=== PATIENT | female | born 1955 | race Caucasian/White ===

== ENCOUNTER 2022-09-01 10:45 | Inpatient (IN) | payer MEDICARE, SELFPAY ==
[2022-09-01] VITALS (27 sets, daily range): BP systolic 87–116; BP diastolic 50–64; PULSE 87–106; RESP 14–19; TEMP 36.9–37.8; O2SAT 93–99; BMI 21.2; BMI 21.3
--- NOTE | 2022-09-01 11:12 | DI.RAD.S_ITS ---
PROCEDURE: XR ACUTE ABDOMEN SERIES INDICATIONS: N/V TECHNIQUE: One view chest and two views of the abdomen were acquired. COMPARISON: None. FINDINGS: Surgical changes and devices: None. Chest: Lungs are clear. Heart size is at upper limits of normal. Pulmonary interstitial prominence. No pleural effusions. No pneumoperitoneum. Abdomen: Bowel gas pattern is nonspecific. 2 rounded densities in the left upper quadrant are probably within the stomach. No suspicious calcifications. Visualized solid organ contours appear normal. Bones: No suspicious bony lesions. IMPRESSION: 1. Nonspecific bowel gas pattern. If clinical symptoms persist or clinical suspicion for pathology is high, CT is suggested for further evaluation. Dictated by: Ragini Batres M.D. on 09/01/2022 at 12:02 Approved by: Ragini Batres M.D. on 09/01/2022 at 12:05
--- NOTE | 2022-09-01 11:13 | ED_ITS ---
HPI - General Adult General Chief complaint: Nausea/Vomiting/Diarrhea Stated complaint: Light headed, vomiting Time Seen by Provider: 09/01/22 11:05 History of Present Illness HPI narrative: 66-year-old female nonsmoker without chronic medical problems, takes no prescriptions presents with family in the chief complaint of a few days nausea, vomiting and diarrhea and now dizziness, weakness and lightheadedness. She is had poor appetite and also very little to eat or drink over the past few days. She denies recent travel, bad food, exposure to ill persons or antibiotic use. She denies history of the same. She denies runny nose, sore throat or cough. She has no chest pain or shortness of breath. She denies any abdominal pain at any point but does state that about a week ago she had some left upper back pain that completely resolved with [id number] therapies and ice. Related Data Home Medications Medication Instructions Recorded Confirmed No Known Home Medications 09/01/22 09/01/22 Allergies Allergy/AdvReac Type Severity Reaction Status Date / Time Some antibiotic Allergy Intermediate Hives Uncoded 09/01/22 12:48 Review of Systems Review of Systems Narrative: GENERAL: See HPI HEENT: Denies sinus pain, ear pain, sore throat, difficulty swallowing, dizziness. RESPIRATORY: Denies dyspnea, cough, wheezing, hemoptysis, sputum. CARDIOVASCULAR: Denies chest pain, palpitations, orthopnea, edema, GASTROINTESTINAL: See HPI : See HPI MUSCULOSKELETAL: denies weakness, joint pain, or bony pain SKIN: Denies rash, skin lesions, or other NEUROLOGIC: Denies weakness, headache, numbness, change in speech, confusion, seizures, incoordination. PSYCHIATRIC: No concerning psychosocial issues. 12 point review of systems is negative except for those stated above Patient History Social History Smoking Status: Former smoker Exam Narrative Exam Narrative: GENERAL: [66] year old patient appears stated age. Well-developed patient, in mild distress. Thin, weak appearing HEAD: Atraumatic. Normocephalic. EYES: Pupils equal round and reactive. Extraocular motions intact. No scleral icterus. No injection or drainage. ENT: Dry mucous membranes Nose without bleeding, purulent drainage. Throat without erythema, tonsillar hypertrophy or exudate. Airway patent. NECK: Trachea midline. Non tender CARDIOVASCULAR: Regular rate and rhythm without murmurs, gallops, or rubs. RESPIRATORY: Clear to auscultation. Breath sounds equal bilaterally. No wheezes, rales, or rhonchi. GASTROINTESTINAL: Abdomen soft, non-tender, nondistended. Increased bowel sounds in all 4 quadrants : prolapse easily reduced by nursing when romero placed due to urinary retention. Painless. Performed with nursing manager technical sales at bedside and patient permission EXTREMITIES: No edema or joint tenderness. BACK: Nontender without deformity or crepitance. No flank tenderness. NEURO: AOx3. SKIN: No rash or erythema of visible areas Initial Vital Signs Initial Vital Signs: Vital Signs Temperature 98.4 F 09/01/22 11:05 Pulse Rate 102 H 09/01/22 11:05 Respiratory Rate 14 09/01/22 11:05 Blood Pressure 91/52 L 09/01/22 11:05 Pulse Oximetry 99 09/01/22 11:05 Oxygen Delivery Method 09/01/22 11:05 Course Orders Ordered: ED Orders 09/01/22 11:12 XR acute abdomen series Stat 09/01/22 11:16 EKG-12 Lead Stat 09/01/22 11:40 Blood Culture Stat Complete Blood Count AUTO DIFF Stat Comprehensive Metabolic Panel Stat Covid-19 + FLU A/B + RSV - PCR Stat Lactate (Lactic Acid) Stat Lipase Stat Magnesium Stat Procalcitonin Stat TSH w/ Reflex to FT4 Urgent 09/01/22 11:47 A1C [Hemoglobin A1C% w Est Avg Glu] Stat 09/01/22 12:41 CT chest abd pel w con Stat 09/01/22 13:30 GI Panel (Film Array) Stat 09/01/22 13:55 BMP [Basic Metabolic Panel] Stat 09/01/22 15:30 Urine Culture Stat Urine Microscopic Stat 09/01/22 16:32 Education, smoking cessation ONGOING 09/01/22 16:36 Lactate (Lactic Acid) Q2H 09/01/22 18:36 Lactate (Lactic Acid) Q2H 09/01/22 20:36 Lactate (Lactic Acid) Q2H 09/01/22 22:36 Lactate (Lactic Acid) Q2H 09/02/22 05:00 CBC Auto Diff [Complete Blood Count AUTO DIFF] DAILY CMP [Comprehensive Metabolic Panel] DAILY Magnesium DAILY Procalcitonin Urgent 09/03/22 05:00 CBC Auto Diff [Complete Blood Count AUTO DIFF] DAILY CMP [Comprehensive Metabolic Panel] DAILY Magnesium DAILY 09/04/22 05:00 CBC Auto Diff [Complete Blood Count AUTO DIFF] DAILY CMP [Comprehensive Metabolic Panel] DAILY Magnesium DAILY Acetaminophen (Acetaminophen 325 Mg Tablet) 650 mg PO Q6H PRN PRN Reason: Fever/Mild Pain (1-3) Dextrose (Dextrose 50 % In Water 25 Gm/50 Ml Syringe) 25 gm IV PRN PRN PRN Reason: Hypoglycemia Enoxaparin Sodium (Enoxaparin 40 Mg/0.4 Ml Syringe) 40 mg SUBCUT DAILY EFE Magnesium Sulfate (Magnesium Sulfate) 2 gm in 50 mls @ 25 mls/hr IV NOW ONE Stop: 09/01/22 18:28 Piperacillin Sod/Tazobactam (Sod 3.375 gm/ Sodium Chloride) 100 mls @ 25 mls/hr IV Q8H EFE Sodium Chloride (Normal Saline 0.9%) 1,000 mls @ 100 mls/hr IV CONT EFE Stop: 09/02/22 04:29 Insulin Human Lispro (Insulin Lispro 100 Unit/Ml 3ml Vial) 0 unit SUBCUT ACHS EFE; Protocol Melatonin (Melatonin 3 Mg Tablet) 6 mg PO BEDTIME PRN PRN Reason: Insomnia Naloxone HCl (Naloxone 0.4 Mg/Ml Vial) 0.2 mg IV Q2MIN PRN PRN Reason: Opiate Reversal Ondansetron HCl (Ondansetron 4 Mg/2 Ml Inj) 4 mg IV Q6HR EFE Discontinued Medications Sodium Chloride (Normal Saline 0.9%) 1,000 mls @ 1,000 mls/hr IV BOLUS ONE Stop: 09/01/22 12:10 Last Infusion: 09/01/22 12:41 Dose: 0 mls/hr Documented By: Admin: 09/01/22 11:48 Dose: 1,000 mls/hr Documented By: YOLANDE Sodium Chloride (Normal Saline 0.9%) 1,428.81 mls @ 476.27 mls/hr 30 ml/kg infuse over 3 hr (1428.81 ml) IV NOW ONE Stop: 09/01/22 15:40 Last Infusion: 09/01/22 14:31 Dose: 0 mls/hr Documented By: Admin: 09/01/22 12:51 Dose: 476.27 mls/hr Documented By: YOLANDE Ceftriaxone Sodium 1,000 mg/ (Sodium Chloride) 100 mls @ 200 mls/hr IV NOW ONE Stop: 09/01/22 12:42 Last Infusion: 09/01/22 13:18 Dose: 0 mls/hr Documented By: Admin: 09/01/22 12:50 Dose: 200 mls/hr Documented By: YOLANDE Piperacillin Sod/Tazobactam (Sod 4.5 gm/ Sodium Chloride) 100 mls @ 200 mls/hr IV NOW ONE Stop: 09/01/22 16:30 Ondansetron HCl (Ondansetron 4 Mg/2 Ml Inj) 4 mg IV NOW ONE Stop: 09/01/22 11:12 Last Admin: 09/01/22 11:48 Dose: 4 mg Documented By: YOLANDE Pantoprazole Sodium (Pantoprazole 40 Mg Vial) 40 mg IV NOW ONE Stop: 09/01/22 11:12 Last Admin: 09/01/22 11:48 Dose: 40 mg Documented By: YOLANDE Potassium Chloride (Potassium Chloride 20 Meq Tab) 40 meq PO NOW ONE Stop: 09/01/22 16:30 Vital Signs Vital signs: Vital Signs - 8 hr 09/01/22 11:05 09/01/22 11:08 09/01/22 11:13 Temperature 98.4 F Pulse Rate 102 H 106 H Respiratory Rate 14 Blood Pressure 91/52 L 91/52 L Pulse Oximetry 99 95 Oxygen Delivery Method Room Air 09/01/22 11:13 09/01/22 11:15 09/01/22 11:34 Temperature Pulse Rate 101 H 101 H 98 H Respiratory Rate 16 Blood Pressure Pulse Oximetry 97 95 95 Oxygen Delivery Method Room Air 09/01/22 11:35 09/01/22 11:35 09/01/22 11:40 Temperature Pulse Rate 100 H 98 H Respiratory Rate Blood Pressure 87/60 L Pulse Oximetry 96 96 Oxygen Delivery Method 09/01/22 11:40 09/01/22 11:45 09/01/22 11:45 Temperature Pulse Rate 99 H Respiratory Rate 14 Blood Pressure 94/51 L 92/50 L Pulse Oximetry 97 Oxygen Delivery Method Room Air 09/01/22 12:00 09/01/22 12:00 09/01/22 12:15 Temperature Pulse Rate 93 H Respiratory Rate Blood Pressure 100/55 L 114/53 L Pulse Oximetry 98 Oxygen Delivery Method 09/01/22 12:15 09/01/22 12:30 09/01/22 12:30 Temperature Pulse Rate 93 H Respiratory Rate 16 Blood Pressure 108/55 L Pulse Oximetry 97 97 Oxygen Delivery Method Room Air 09/01/22 12:45 09/01/22 12:45 09/01/22 13:00 Temperature Pulse Rate 95 H Respiratory Rate Blood Pressure 107/54 L 105/59 L Pulse Oximetry 98 Oxygen Delivery Method 09/01/22 13:00 09/01/22 13:15 09/01/22 13:15 Temperature Pulse Rate 95 H 99 H Respiratory Rate 19 Blood Pressure 104/58 L Pulse Oximetry 97 97 Oxygen Delivery Method Room Air 09/01/22 13:35 09/01/22 13:43 09/01/22 13:43 Temperature Pulse Rate 104 H 99 H Respiratory Rate Blood Pressure 114/61 Pulse Oximetry 94 97 Oxygen Delivery Method 09/01/22 13:45 09/01/22 13:45 09/01/22 14:00 Temperature Pulse Rate 99 H Respiratory Rate Blood Pressure 110/62 114/62 Pulse Oximetry 98 Oxygen Delivery Method 09/01/22 14:00 09/01/22 14:15 09/01/22 14:15 Temperature Pulse Rate 92 H 94 H Respiratory Rate Blood Pressure 115/63 Pulse Oximetry 96 95 Oxygen Delivery Method 09/01/22 14:30 09/01/22 14:30 09/01/22 14:45 Temperature Pulse Rate 95 H Respiratory Rate Blood Pressure 110/63 115/64 Pulse Oximetry 94 Oxygen Delivery Method 09/01/22 14:45 09/01/22 15:00 09/01/22 15:00 Temperature Pulse Rate 96 H 99 H Respiratory Rate 16 Blood Pressure 115/63 Pulse Oximetry 94 93 Oxygen Delivery Method Room Air 09/01/22 16:11 09/01/22 16:12 Temperature Pulse Rate 94 H Respiratory Rate Blood Pressure 116/59 L Pulse Oximetry 95 Oxygen Delivery Method Medical Decision Making Lab Data 09/01/22 11:40 09/01/22 13:55 Labs: Lab Results 09/01/22 09/01/22 09/01/22 Range/Units 11:40 11:40 11:40 WBC 19.1 H (4.5-11.0) X10^3/uL RBC 4.19 (4.0-5.2) X10^6/uL Hgb 13.0 (12.0-16.0) g/dL Hct 38.7 (36-46) % MCV 92.2 (80-100) fL MCH 30.9 (26-34) PG MCHC 33.5 (30-36) % RDW 12.1 (11.6-14.8) % Plt Count 185 (150-400) X10^3/uL Neut % (Auto) 87.9 H (50-75) % Lymph % (Auto) 4.7 L (25-40) % [place] % (Auto) 7.3 (3-14) % Eos % (Auto) 0.0 L (2-4) % Baso % (Auto) 0.1 (0-2) % Neut # (Auto) 56780 H (9411-7235) /uL Lymph # (Auto) 900 L (2120-2015) /uL [place] # (Auto) 1400 H (0-900) /uL Eos # (Auto) 0 (0-450) /uL Baso # (Auto) 0 (0-100) /uL Sodium 135 L (137-145) mmol/L Potassium 3.3 L (3.4-5.1) mmol/L Chloride 101 (98-107) mmol/L Carbon Dioxide 22 (22-32) mmol/L BUN 21 H (7-17) mg/dL Creatinine 1.12 H (0.52-1.04) mg/dL Estimated GFR 55 L (>60) mL/min BUN/Creatinine Ratio 18.8 (6-22) Glucose 221 H (80-110) mg/dL Hemoglobin A1c (4.0-6.0) % Lactate 3.8 H (0.7-2.1) mmol/L Calcium 8.8 (8.4-10.2) mg/dL Magnesium 1.6 (1.6-2.3) mg/dL Total Bilirubin 0.6 (0.2-1.3) mg/dL AST 52 H (14-36) IU/L ALT 38 H (<35) IU/L Alkaline Phosphatase 97 (38-126) U/L Total Protein 7.2 (6.3-8.2) g/dL Albumin 3.9 (3.5-5.0) g/dL Globulin 3.3 (1.7-4.1) g/dL Albumin/Globulin Ratio 1.2 (1.0-2.8) Lipase 20 L (23-300) U/L Procalcitonin (<0.5) ng/mL Urine RBC (0-5/HPF) Urine WBC (0-5/HPF) Ur Squamous Epith Cells (0-5/HPF) Urine Bacteria (None) Stl C. cayetanensis PCR (Not Detect) Stool Rotavirus (PCR) (Not Detect) Stool Adenovirus (PCR) (Not Detect) Stool Astrovirus (PCR) (Not Detect) Stool Cryptosporidium PCR (Not Detect) Stl E.coli Shiga Tox PCR (Not Detect) St Sh/Enteroin Ecoli PCR (Not Detect) Stool E coli O157 PCR (Not Detect) Stl Enterotoxigenic E PCR (Not Detect) Stool EPEC (PCR) (Not Detect) Stl E. histolytica PCR (Not Detect) Stool Giardia Lamblia PCR (Not Detect) Stool Sapovirus (PCR) (Not Detect) Stl P. shigelloides PCR (Not Detect) St Y.enterocolitica PCR (Not Detect) Stool Vibrio (PCR) (Not Detect) Stl Vibrio cholerae PCR (Not Detect) Stl Enteroaggr Ecoli PCR (Not Detect) Stl Norovirus GI/GII PCR (Not Detect) Campylobacter (PCR) (Not Detect) C. difficile Tox (PCR) (Not Detect) SARS-CoV-2 (PCR) (Negative) Influenza A (RT-PCR) (NEGATIVE) Influenza B (RT-PCR) (NEGATIVE) RSV (PCR) (Negative) Salmonella (PCR) (Not Detect) 09/01/22 09/01/22 09/01/22 Range/Units 11:40 11:40 11:47 WBC (4.5-11.0) X10^3/uL RBC (4.0-5.2) X10^6/uL Hgb (12.0-16.0) g/dL Hct (36-46) % MCV (80-100) fL MCH (26-34) PG MCHC (30-36) % RDW (11.6-14.8) % Plt Count (150-400) X10^3/uL Neut % (Auto) (50-75) % Lymph % (Auto) (25-40) % [place] % (Auto) (3-14) % Eos % (Auto) (2-4) % Baso % (Auto) (0-2) % Neut # (Auto) (6379-9255) /uL Lymph # (Auto) (7810-9545) /uL [place] # (Auto) (0-900) /uL Eos # (Auto) (0-450) /uL Baso # (Auto) (0-100) /uL Sodium (137-145) mmol/L Potassium (3.4-5.1) mmol/L Chloride (98-107) mmol/L Carbon Dioxide (22-32) mmol/L BUN (7-17) mg/dL Creatinine (0.52-1.04) mg/dL Estimated GFR (>60) mL/min BUN/Creatinine Ratio (6-22) Glucose (80-110) mg/dL Hemoglobin A1c 6.7 H (4.0-6.0) % Lactate (0.7-2.1) mmol/L Calcium (8.4-10.2) mg/dL Magnesium (1.6-2.3) mg/dL Total Bilirubin (0.2-1.3) mg/dL AST (14-36) IU/L ALT (<35) IU/L Alkaline Phosphatase (38-126) U/L Total Protein (6.3-8.2) g/dL Albumin (3.5-5.0) g/dL Globulin (1.7-4.1) g/dL Albumin/Globulin Ratio (1.0-2.8) Lipase (23-300) U/L Procalcitonin 167 H (<0.5) ng/mL Urine RBC (0-5/HPF) Urine WBC (0-5/HPF) Ur Squamous Epith Cells (0-5/HPF) Urine Bacteria (None) Stl C. cayetanensis PCR (Not Detect) Stool Rotavirus (PCR) (Not Detect) Stool Adenovirus (PCR) (Not Detect) Stool Astrovirus (PCR) (Not Detect) Stool Cryptosporidium PCR (Not Detect) Stl E.coli Shiga Tox PCR (Not Detect) St Sh/Enteroin Ecoli PCR (Not Detect) Stool E coli O157 PCR (Not Detect) Stl Enterotoxigenic E PCR (Not Detect) Stool EPEC (PCR) (Not Detect) Stl E. histolytica PCR (Not Detect) Stool Giardia Lamblia PCR (Not Detect) Stool Sapovirus (PCR) (Not Detect) Stl P. shigelloides PCR (Not Detect) St Y.enterocolitica PCR (Not Detect) Stool Vibrio (PCR) (Not Detect) Stl Vibrio cholerae PCR (Not Detect) Stl Enteroaggr Ecoli PCR (Not Detect) Stl Norovirus GI/GII PCR (Not Detect) Campylobacter (PCR) (Not Detect) C. difficile Tox (PCR) (Not Detect) SARS-CoV-2 (PCR) Negative (Negative) Influenza A (RT-PCR) Flu a negative (NEGATIVE) Influenza B (RT-PCR) Flu b negative (NEGATIVE) RSV (PCR) Negative (Negative) Salmonella (PCR) (Not Detect) 09/01/22 09/01/22 09/01/22 Range/Units 13:30 13:55 13:55 WBC (4.5-11.0) X10^3/uL RBC (4.0-5.2) X10^6/uL Hgb (12.0-16.0) g/dL Hct (36-46) % MCV (80-100) fL MCH (26-34) PG MCHC (30-36) % RDW (11.6-14.8) % Plt Count (150-400) X10^3/uL Neut % (Auto) (50-75) % Lymph % (Auto) (25-40) % [place] % (Auto) (3-14) % Eos % (Auto) (2-4) % Baso % (Auto) (0-2) % Neut # (Auto) (4219-9285) /uL Lymph # (Auto) (0433-8198) /uL [place] # (Auto) (0-900) /uL Eos # (Auto) (0-450) /uL Baso # (Auto) (0-100) /uL Sodium 135 L (137-145) mmol/L Potassium 3.0 L (3.4-5.1) mmol/L Chloride 102 (98-107) mmol/L Carbon Dioxide 21 L (22-32) mmol/L BUN 20 H (7-17) mg/dL Creatinine 0.93 (0.52-1.04) mg/dL Estimated GFR > 60 (>60) mL/min BUN/Creatinine Ratio 21.5 (6-22) Glucose 173 H (80-110) mg/dL Hemoglobin A1c (4.0-6.0) % Lactate 4.0 H (0.7-2.1) mmol/L Calcium 7.0 L (8.4-10.2) mg/dL Magnesium (1.6-2.3) mg/dL Total Bilirubin (0.2-1.3) mg/dL AST (14-36) IU/L ALT (<35) IU/L Alkaline Phosphatase (38-126) U/L Total Protein (6.3-8.2) g/dL Albumin (3.5-5.0) g/dL Globulin (1.7-4.1) g/dL Albumin/Globulin Ratio (1.0-2.8) Lipase (23-300) U/L Procalcitonin (<0.5) ng/mL Urine RBC (0-5/HPF) Urine WBC (0-5/HPF) Ur Squamous Epith Cells (0-5/HPF) Urine Bacteria (None) Stl C. cayetanensis PCR Not detected (Not Detect) Stool Rotavirus (PCR) Not detected (Not Detect) Stool Adenovirus (PCR) Not detected (Not Detect) Stool Astrovirus (PCR) Not detected (Not Detect) Stool Cryptosporidium PCR Not detected (Not Detect) Stl E.coli Shiga Tox PCR Not detected (Not Detect) St Sh/Enteroin Ecoli PCR Not detected (Not Detect) Stool E coli O157 PCR Not detected (Not Detect) Stl Enterotoxigenic E PCR Not detected (Not Detect) Stool EPEC (PCR) Not detected (Not Detect) Stl E. histolytica PCR Not detected (Not Detect) Stool Giardia Lamblia PCR Not detected (Not Detect) Stool Sapovirus (PCR) Not detected (Not Detect) Stl P. shigelloides PCR Not detected (Not Detect) St Y.enterocolitica PCR Not detected (Not Detect) Stool Vibrio (PCR) Not detected (Not Detect) Stl Vibrio cholerae PCR Not detected (Not Detect) Stl Enteroaggr Ecoli PCR Not detected (Not Detect) Stl Norovirus GI/GII PCR Detected H (Not Detect) Campylobacter (PCR) Not detected (Not Detect) C. difficile Tox (PCR) Not detected (Not Detect) SARS-CoV-2 (PCR) (Negative) Influenza A (RT-PCR) (NEGATIVE) Influenza B (RT-PCR) (NEGATIVE) RSV (PCR) (Negative) Salmonella (PCR) Not detected (Not Detect) 09/01/22 Range/Units 15:30 WBC (4.5-11.0) X10^3/uL RBC (4.0-5.2) X10^6/uL Hgb (12.0-16.0) g/dL Hct (36-46) % MCV (80-100) fL MCH (26-34) PG MCHC (30-36) % RDW (11.6-14.8) % Plt Count (150-400) X10^3/uL Neut % (Auto) (50-75) % Lymph % (Auto) (25-40) % [place] % (Auto) (3-14) % Eos % (Auto) (2-4) % Baso % (Auto) (0-2) % Neut # (Auto) (9652-8621) /uL Lymph # (Auto) (3806-6699) /uL [place] # (Auto) (0-900) /uL Eos # (Auto) (0-450) /uL Baso # (Auto) (0-100) /uL Sodium (137-145) mmol/L Potassium (3.4-5.1) mmol/L Chloride (98-107) mmol/L Carbon Dioxide (22-32) mmol/L BUN (7-17) mg/dL Creatinine (0.52-1.04) mg/dL Estimated GFR (>60) mL/min BUN/Creatinine Ratio (6-22) Glucose (80-110) mg/dL Hemoglobin A1c (4.0-6.0) % Lactate (0.7-2.1) mmol/L Calcium (8.4-10.2) mg/dL Magnesium (1.6-2.3) mg/dL Total Bilirubin (0.2-1.3) mg/dL AST (14-36) IU/L ALT (<35) IU/L Alkaline Phosphatase (38-126) U/L Total Protein (6.3-8.2) g/dL Albumin (3.5-5.0) g/dL Globulin (1.7-4.1) g/dL Albumin/Globulin Ratio (1.0-2.8) Lipase (23-300) U/L Procalcitonin (<0.5) ng/mL Urine RBC None seen (0-5/HPF) Urine WBC 10-30/hpf H (0-5/HPF) Ur Squamous Epith Cells None seen (0-5/HPF) Urine Bacteria Many (>30) H (None) Stl C. cayetanensis PCR (Not Detect) Stool Rotavirus (PCR) (Not Detect) Stool Adenovirus (PCR) (Not Detect) Stool Astrovirus (PCR) (Not Detect) Stool Cryptosporidium PCR (Not Detect) Stl E.coli Shiga Tox PCR (Not Detect) St Sh/Enteroin Ecoli PCR (Not Detect) Stool E coli O157 PCR (Not Detect) Stl Enterotoxigenic E PCR (Not Detect) Stool EPEC (PCR) (Not Detect) Stl E. histolytica PCR (Not Detect) Stool Giardia Lamblia PCR (Not Detect) Stool Sapovirus (PCR) (Not Detect) Stl P. shigelloides PCR (Not Detect) St Y.enterocolitica PCR (Not Detect) Stool Vibrio (PCR) (Not Detect) Stl Vibrio cholerae PCR (Not Detect) Stl Enteroaggr Ecoli PCR (Not Detect) Stl Norovirus GI/GII PCR (Not Detect) Campylobacter (PCR) (Not Detect) C. difficile Tox (PCR) (Not Detect) SARS-CoV-2 (PCR) (Negative) Influenza A (RT-PCR) (NEGATIVE) Influenza B (RT-PCR) (NEGATIVE) RSV (PCR) (Negative) Salmonella (PCR) (Not Detect) Urine Dip Bedside Urine Glucose Negative Bedside Urine Bilirubin - Negative Bedside Urine Ketone - Negative Urine Specific [place] 1.010 Bedside Urine Occult Blood +++ Bedside Urine pH 5.5 Bedside Urine Protein - Negative Bedside Urine Urobilinogen - Negative Bedside Urine Nitrite - Negative Bedside Urine Leukocytes - Negative Esterase Point of care testing: Urine Dip Bedside Urine Glucose Negative Bedside Urine Bilirubin - Negative Bedside Urine Ketone - Negative Urine Specific [place] 1.010 Bedside Urine Occult Blood +++ Bedside Urine pH 5.5 Bedside Urine Protein - Negative Bedside Urine Urobilinogen - Negative Bedside Urine Nitrite - Negative Bedside Urine Leukocytes - Negative Esterase Imaging Data CT scan - chest: Radiologist's Impression: [address] [id number] Scan ReportSigned Patient: Jaron Newton RMR#: [id number]: 6Acct:[id number]/Sex: 87 / MDate of Service: 07/21/22Lo: [id number] Number: [id number] Procedure: CT head/brain wo con Ordering Provider: Attila Aponte MD PROCEDURE: CT HEAD/BRAIN WO CON INDICATIONS: CVA, neuro status change TECHNIQUE: Noncontrast 4.5 mm thick angled axial sections acquired from the foramen magnum to the vertex, with coronal and sagittal reformats. For radiation dose reduction, the following was used: automated exposure control, adjustment of mA and/or kV according to patient size. COMPARISON: [facility], MR, MR BRAIN WITH/WITHOUT CONTRAST, 11/05/2020, 8:17. [facility], CT, CT ANGIO HEAD AND NECK, 07/20/2022, 19:02. [facility], CT, CT HEAD/BRAIN WO CON, 07/20/2022, 15:27. FINDINGS: Image quality: Excellent. CSF spaces: Basal cisterns are patent. No extra-axial fluid collections. The ventricles are symmetric in size and shape. Brain: No intracranial bleeds or masses. There is cerebral volume loss for age, with resultant ventricular and sulcal prominence. There are periventricular and deep white matter chronic small vessel ischemic changes. Dystrophic calcifications in basal ganglia bilaterally. There is intracranial internal carotid artery atherosclerosis. Skull and face: Calvarium and visualized facial bones appear intact, without suspicious lesions. Sinuses: Visualized sinuses and mastoids are clear. IMPRESSION: 1. No acute intracranial abnormalities. If clinically indicated, MRI would be helpful. 2. Cerebral volume loss and chronic microvascular ischemic changes. Dictated by: Ragini Batres M.D. on 07/21/2022 at 11:58 Approved by: Ragini Batres M.D. on 07/21/2022 at 12:00 [facility] Narrative Medical decision making narrative: CC: 66-year-old female with nausea, vomiting, diarrhea and generalized weakness Complicating co-morbidities: Age Data collected from: Patient Medical records reviewed: None available Differential considered, but not limited to: Flu, COVID, enteritis, bowel obstruction versus other Exam documented above, pertinent findings include: Heart rate regular rhythm, no increased work of breathing, abdomen soft and nontender, dry mucous membranes and poor skin turgor Lab Test results independently reviewed as above. Pertinent findings: Imaging studies independently reviewed: Diffuse appearance of colon thickening with mild inflammatory change Consultations: Discussed with hospitalist, happy to accept Treatments: Fluids at 30 cc/kilogram, Rocephin after cultures Re-evaluations: Patient hemodynamically stable, discomfort well controlled, after significant fluids she is feeling the urge to urinate, given her inability to completely empty her bladder, especially in the presence of prolapse a catheter was placed Discussion: Patient presents with a few days of nausea, vomiting, diarrhea and generalized malaise presents with concern for possible early sepsis, she has elevated white blood cell count, critically elevated lactate which actually is increased after fluids have been administered as well as increased procalcitonin. Patient requires admission for ongoing evaluation, trending labs, fluid administration, antibiotics Discharge Plan Departure Patient Disposition: Admitted As Inpatient Clinical Impression: Sepsis, Norovirus, Acute UTI
[2022-09-01] MEDS: PANTOPRAZOLE 40 MG VIAL IV (11:48)
[2022-09-01] MEDS: SODIUM CHLORIDE 0.9% 1,000 ML 1000 ML IV (11:48)
[2022-09-01] MEDS: ONDANSETRON 4 MG/2 ML INJ IV (11:48)
[2022-09-01 11:50] LABS: Add Manual Diff / Slide Review NO; Basophils Absolute Auto 0 /uL (0-100); Basophils Percent Auto 0.1 % (0-2); Eosinophils Absolute Auto 0 /uL (0-450); Hematocrit 38.7 % (36-46); Lymphocytes Absolute Auto 900 /uL (1100-4500); Lymphocytes Percent Auto 4.7 % (25-40); Mean Corpuscular HGB Conc 33.5 % (30-36); Mean Corpuscular Hemoglobin 30.9 PG (26-34); Mean Corpuscular Volume 92.2 fL (80-100); Monocytes Absolute Auto 1400 /uL (0-900); Monocytes Percent Auto 7.3 % (3-14); Neutrophils Absolute Auto 16800 /uL (1500-7000); Neutrophils Percent Auto 87.9 % (50-75); Platelet Count 185 X10^3/uL (150-400); Red Blood Cell Count 4.19 X10^6/uL (4.0-5.2); Red Cell Distribution Width 12.1 % (11.6-14.8); White Blood Cell Count 19.1 X10^3/uL (4.5-11.0)
[2022-09-01 12:16] LABS: Alanine Aminotransferase 38 IU/L (<35); Albumin 3.9 g/dL (3.5-5.0); Albumin Globulin Ratio 1.2 (1.0-2.8); Alkaline Phosphatase 97 U/L (38-126); Aspartate Aminotransferase 52 IU/L (14-36); BUN Creatinine Ratio 18.8 (6-22); Bilirubin Total 0.6 mg/dL (0.2-1.3); Blood Urea Nitrogen 21 mg/dL (7-17); Calcium 8.8 mg/dL (8.4-10.2); Carbon Dioxide 22 mmol/L (22-32); Chloride 101 mmol/L (98-107); Estimated Glomerular Filt Rate 55 mL/min (>60); Globulin 3.3 g/dL (1.7-4.1); Glucose 221 mg/dL (80-110); HEMOLYSIS < 15 (0-50); Lactate (Lactic Acid) 3.8 mmol/L (0.7-2.1); Lipase 20 U/L (23-300); Magnesium 1.6 mg/dL (1.6-2.3); Potassium 3.3 mmol/L (3.4-5.1); Sodium 135 mmol/L (137-145); Total Protein 7.2 g/dL (6.3-8.2)
[2022-09-01 12:34] LABS: Influenza A - CEPHEID Flu A NEGATIVE (NEGATIVE); Influenza B - CEPHEID Flu B NEGATIVE (NEGATIVE); Respiratory Syncytial Virus Negative (Negative)
[2022-09-01 12:35] LABS: COVID-19 CEPHEID 4-PLEX PCR Negative (Negative)
--- NOTE | 2022-09-01 12:41 | DI.CT.S_ITS ---
PROCEDURE: CT CHEST ABD PEL W CON INDICATIONS: severe sepsis, SOB, cough, N/V/D TECHNIQUE: After the administration of oral and intravenous contrast, axial sections acquired from the supraclavicular neck to the pubic symphysis. Coronal and sagittal reformats were performed. For radiation dose reduction, the following was used: automated exposure control, adjustment of mA and/or kV according to patient size. COMPARISON: None. FINDINGS: Image quality: Excellent. CHEST: Lower Neck: No enlarged lymph nodes. Thyroid: Within normal limits. Axillae: No enlarged lymph nodes. Chest Wall: Unremarkable. Lungs and Airways: No consolidation or suspicious nodules. Pleura: No pneumothorax or pleural effusions. Heart: Heart size is normal. No pericardial effusion. Thoracic Vessels: The aorta and pulmonary arteries demonstrate normal size. Mediastinum and Georgina: No enlarged lymph nodes. Esophagus: No wall thickening. Prominent hiatal hernia. ABDOMEN: Liver: Liver is enlarged measuring 20.6 cm with diffuse steatosis. Low-attenuation foci are present within the liver suggestive of simple cysts. Gallbladder: Unremarkable. Biliary ducts: Unremarkable. Pancreas: Unremarkable. Spleen: Unremarkable. Adrenal Glands: Unremarkable. Kidneys and Ureters: Unremarkable. Stomach and Bowel: The colon demonstrates a diffuse appearance of thickening with mild scattered areas of pericolonic inflammatory change. It is overall incompletely distended. Peritoneum: No abnormal intraperitoneal fluid. No free air. Ventral Wall: No hernia. Abdominal Nodes: No retroperitoneal or mesenteric adenopathy by size criteria. Vessels: Aorta and inferior vena cava are normal in size. PELVIS: Pelvic Organs: Unremarkable. Bladder: Unremarkable. Pelvic Nodes: No enlarged lymph nodes. Miscellaneous: No inguinal hernias are seen. Bones: Unremarkable. IMPRESSION: 1. Diffuse appearance of colonic thickening with mild inflammatory change. While thickening could be extension weighted secondary to incomplete distention, overall appearance is suggestive of developing colitis secondary to infection/inflammation/ischemia. 2. Hepatic steatosis. Dictated by: April Florian M.D. on 09/01/2022 at 14:11 Approved by: April Florian M.D. on 09/01/2022 at 14:17
[2022-09-01] MEDS: cefTRIAXone 1,000 MG in SODIUM CHLORIDE 0.9% 100 ML 200 MG IV (12:50)
[2022-09-01] MEDS: SODIUM CHLORIDE 0.9% 476.27 ML IV (12:51)
[2022-09-01 13:40] LABS: Hemoglobin A1C% w Est Avg Glu 6.7 % (4.0-6.0)
[2022-09-01 13:47] LABS: Reflexed Lactate in 2 Hours Y
[2022-09-01 13:57] LABS: Procalcitonin 167 ng/mL (<0.5)
[2022-09-01 14:14] LABS: BUN Creatinine Ratio 21.5 (6-22); Blood Urea Nitrogen 20 mg/dL (7-17); Carbon Dioxide 21 mmol/L (22-32); Chloride 102 mmol/L (98-107); Estimated Glomerular Filt Rate > 60 mL/min (>60); Glucose 173 mg/dL (80-110); HEMOLYSIS < 15 (0-50); Sodium 135 mmol/L (137-145)
[2022-09-01 14:59] LABS: Adenovirus F 40/41 Not Detected (Not Detect); Astrovirus Not Detected (Not Detect); Campylobacter Not Detected (Not Detect); Clostridium difficile toxin AB Not Detected (Not Detect); Cryptosporidium Not Detected (Not Detect); Cyclospora cayetanensis Not Detected (Not Detect); Entamoeba histolytica Not Detected (Not Detect); Enteroaggregative E.coli Not Detected (Not Detect); Enteropathogenic E.coli Not Detected (Not Detect); Enterotoxigenic E.coli It/st Not Detected (Not Detect); Giardia lamblia Not Detected (Not Detect); Norovirus GI/GII Detected (Not Detect); Plesiomonsa shigelloides Not Detected (Not Detect); Rotavirus A Not Detected (Not Detect); Salmonella Not Detected (Not Detect); Sapovirus Not Detected (Not Detect); Shiga-like toxin-prod E.coli Not Detected (Not Detect); Shigella/Enteroinvasive E.coli Not Detected (Not Detect); Vibrio Not Detected (Not Detect); Vibrio cholerae Not Detected (Not Detect); Yersinia enterocolitica Not Detected (Not Detect)
[2022-09-01 16:16] LABS: Bacteria Urine Many (>30); RBC Urine None Seen (0-5/HPF); Squamous Epithelial Cell Urine None Seen (0-5/HPF); WBC Urine 10-30/HPF (0-5/HPF)
--- NOTE | 2022-09-01 16:42 | PM.HP.1 ---
History of Present Illness History of Present Illness Date Patient Seen: 09/01/22 Chief complaint: Light headed, vomiting Narrative: Priti Gonzales is a 66-year-old female with no significant past medical history who presents with acute-onset NVD and found to have sepsis, lactic acidosis due to norovirus. Patient notes a few days of worsening diarrhea, NV and even had an accident overnight where she defecated herself in bed while sleeping. She feels very tired and fatigued. Denies abd pain. Denies urinary frequency, burning or urgency. Daughter is at bedside and has had no symptoms, including her surrounding family members. She reports not eating or drinking well due to the nausea, which has made her lightheaded and dizzy easily. Denies CP, headache, LE edema. In the ED noted to have lactic acid of 4, procal of 167 and WBC 19. Given 2L NS boluses. Patient History Family & Social History Safety & Behavioral: Feels Safe in Current Yes Environment Been Physically Hurt or No Threatened By a Person Tobacco & Substance use: Smoking Status Former smoker alcohol intake frequency 0-2 drinks per day Substance Use Type does not use Meds Home Medications and Allergies Home Medications Medication Instructions Recorded Confirmed Type calcium 100 mg capsule 100 mg PO DAILY 09/01/22 09/01/22 History cholecalciferol (vitamin D3) 10 10 mcg PO DAILY 09/01/22 09/01/22 History mcg (400 unit) capsule multivitamin 1 cap PO DAILY 09/01/22 09/01/22 History Allergies Allergy/AdvReac Type Severity Reaction Status Date / Time Some antibiotic Allergy Intermediate Hives Uncoded 09/01/22 12:48 Review of Systems Review of Systems Narrative: All other systems reviewed with the patient and are negative unless otherwise stated. Exam Vital Signs (past 8 hours): - 09/01/22 11:05 09/01/22 11:08 09/01/22 11:13 Temperature 98.4 F Pulse Rate 102 H 106 H Respiratory Rate 14 Blood Pressure 91/52 L 91/52 L Pulse Oximetry 99 95 Oxygen Delivery Method Room Air 09/01/22 11:13 09/01/22 11:15 09/01/22 11:34 Temperature Pulse Rate 101 H 101 H 98 H Respiratory Rate 16 Blood Pressure Pulse Oximetry 97 95 95 Oxygen Delivery Method Room Air 09/01/22 11:35 09/01/22 11:35 09/01/22 11:40 Temperature Pulse Rate 100 H 98 H Respiratory Rate Blood Pressure 87/60 L Pulse Oximetry 96 96 Oxygen Delivery Method 09/01/22 11:40 09/01/22 11:45 09/01/22 11:45 Temperature Pulse Rate 99 H Respiratory Rate 14 Blood Pressure 94/51 L 92/50 L Pulse Oximetry 97 Oxygen Delivery Method Room Air 09/01/22 12:00 09/01/22 12:00 09/01/22 12:15 Temperature Pulse Rate 93 H Respiratory Rate Blood Pressure 100/55 L 114/53 L Pulse Oximetry 98 Oxygen Delivery Method 09/01/22 12:15 09/01/22 12:30 09/01/22 12:30 Temperature Pulse Rate 93 H Respiratory Rate 16 Blood Pressure 108/55 L Pulse Oximetry 97 97 Oxygen Delivery Method Room Air 09/01/22 12:45 09/01/22 12:45 09/01/22 13:00 Temperature Pulse Rate 95 H Respiratory Rate Blood Pressure 107/54 L 105/59 L Pulse Oximetry 98 Oxygen Delivery Method 09/01/22 13:00 09/01/22 13:15 09/01/22 13:15 Temperature Pulse Rate 95 H 99 H Respiratory Rate 19 Blood Pressure 104/58 L Pulse Oximetry 97 97 Oxygen Delivery Method Room Air 09/01/22 13:35 09/01/22 13:43 09/01/22 13:43 Temperature Pulse Rate 104 H 99 H Respiratory Rate Blood Pressure 114/61 Pulse Oximetry 94 97 Oxygen Delivery Method 09/01/22 13:45 09/01/22 13:45 09/01/22 14:00 Temperature Pulse Rate 99 H Respiratory Rate Blood Pressure 110/62 114/62 Pulse Oximetry 98 Oxygen Delivery Method 09/01/22 14:00 09/01/22 14:15 09/01/22 14:15 Temperature Pulse Rate 92 H 94 H Respiratory Rate Blood Pressure 115/63 Pulse Oximetry 96 95 Oxygen Delivery Method 09/01/22 14:30 09/01/22 14:30 09/01/22 14:45 Temperature Pulse Rate 95 H Respiratory Rate Blood Pressure 110/63 115/64 Pulse Oximetry 94 Oxygen Delivery Method 09/01/22 14:45 09/01/22 15:00 09/01/22 15:00 Temperature Pulse Rate 96 H 99 H Respiratory Rate 16 Blood Pressure 115/63 Pulse Oximetry 94 93 Oxygen Delivery Method Room Air 09/01/22 16:11 09/01/22 16:12 Temperature Pulse Rate 94 H Respiratory Rate Blood Pressure 116/59 L Pulse Oximetry 95 Oxygen Delivery Method Oxygen Delivery Method Room Air Narrative Exam Narrative: GEN: no acute distress, appears fatigued HEENT: moist mucous membranes, PERRL NECK: trachea midline, no JVD CV: regular rate and rhythm, no murmurs PULM: clear bilaterally ABD: soft, nontender, nondistended, no organomegaly EXT: warm and well perfused with no edema NEURO: awake, alert, oriented, no focal deficits Objective Labs 09/01/22 11:40 09/01/22 13:55 Labs: Laboratory Results - last 24 hr 09/01/22 09/01/22 09/01/22 11:40 11:40 11:40 WBC 19.1 H RBC 4.19 Hgb 13.0 Hct 38.7 MCV 92.2 MCH 30.9 MCHC 33.5 RDW 12.1 Plt Count 185 Neut % (Auto) 87.9 H Lymph % (Auto) 4.7 L [place] % (Auto) 7.3 Eos % (Auto) 0.0 L Baso % (Auto) 0.1 Neut # (Auto) 32023 H Lymph # (Auto) 900 L [place] # (Auto) 1400 H Eos # (Auto) 0 Baso # (Auto) 0 Sodium 135 L Potassium 3.3 L Chloride 101 Carbon Dioxide 22 BUN 21 H Creatinine 1.12 H Estimated GFR 55 L BUN/Creatinine Ratio 18.8 Glucose 221 H Hemoglobin A1c Lactate 3.8 H Calcium 8.8 Magnesium 1.6 Total Bilirubin 0.6 AST 52 H ALT 38 H Alkaline Phosphatase 97 Total Protein 7.2 Albumin 3.9 Globulin 3.3 Albumin/Globulin Ratio 1.2 Lipase 20 L Procalcitonin Urine RBC Urine WBC Ur Squamous Epith Cells Urine Bacteria Stl C. cayetanensis PCR Stool Rotavirus (PCR) Stool Adenovirus (PCR) Stool Astrovirus (PCR) Stool Cryptosporidium PCR Stl E.coli Shiga Tox PCR St Sh/Enteroin Ecoli PCR Stool E coli O157 PCR Stl Enterotoxigenic E PCR Stool EPEC (PCR) Stl E. histolytica PCR Stool Giardia Lamblia PCR Stool Sapovirus (PCR) Stl P. shigelloides PCR St Y.enterocolitica PCR Stool Vibrio (PCR) Stl Vibrio cholerae PCR Stl Enteroaggr Ecoli PCR Stl Norovirus GI/GII PCR Campylobacter (PCR) C. difficile Tox (PCR) SARS-CoV-2 (PCR) Influenza A (RT-PCR) Influenza B (RT-PCR) RSV (PCR) Salmonella (PCR) 09/01/22 09/01/22 09/01/22 11:40 11:40 11:47 WBC RBC Hgb Hct MCV MCH MCHC RDW Plt Count Neut % (Auto) Lymph % (Auto) [place] % (Auto) Eos % (Auto) Baso % (Auto) Neut # (Auto) Lymph # (Auto) [place] # (Auto) Eos # (Auto) Baso # (Auto) Sodium Potassium Chloride Carbon Dioxide BUN Creatinine Estimated GFR BUN/Creatinine Ratio Glucose Hemoglobin A1c 6.7 H Lactate Calcium Magnesium Total Bilirubin AST ALT Alkaline Phosphatase Total Protein Albumin Globulin Albumin/Globulin Ratio Lipase Procalcitonin 167 H Urine RBC Urine WBC Ur Squamous Epith Cells Urine Bacteria Stl C. cayetanensis PCR Stool Rotavirus (PCR) Stool Adenovirus (PCR) Stool Astrovirus (PCR) Stool Cryptosporidium PCR Stl E.coli Shiga Tox PCR St Sh/Enteroin Ecoli PCR Stool E coli O157 PCR Stl Enterotoxigenic E PCR Stool EPEC (PCR) Stl E. histolytica PCR Stool Giardia Lamblia PCR Stool Sapovirus (PCR) Stl P. shigelloides PCR St Y.enterocolitica PCR Stool Vibrio (PCR) Stl Vibrio cholerae PCR Stl Enteroaggr Ecoli PCR Stl Norovirus GI/GII PCR Campylobacter (PCR) C. difficile Tox (PCR) SARS-CoV-2 (PCR) Negative Influenza A (RT-PCR) Flu a negative Influenza B (RT-PCR) Flu b negative RSV (PCR) Negative Salmonella (PCR) 09/01/22 09/01/22 09/01/22 13:30 13:55 13:55 WBC RBC Hgb Hct MCV MCH MCHC RDW Plt Count Neut % (Auto) Lymph % (Auto) [place] % (Auto) Eos % (Auto) Baso % (Auto) Neut # (Auto) Lymph # (Auto) [place] # (Auto) Eos # (Auto) Baso # (Auto) Sodium 135 L Potassium 3.0 L Chloride 102 Carbon Dioxide 21 L BUN 20 H Creatinine 0.93 Estimated GFR > 60 BUN/Creatinine Ratio 21.5 Glucose 173 H Hemoglobin A1c Lactate 4.0 H Calcium 7.0 L Magnesium Total Bilirubin AST ALT Alkaline Phosphatase Total Protein Albumin Globulin Albumin/Globulin Ratio Lipase Procalcitonin Urine RBC Urine WBC Ur Squamous Epith Cells Urine Bacteria Stl C. cayetanensis PCR Not detected Stool Rotavirus (PCR) Not detected Stool Adenovirus (PCR) Not detected Stool Astrovirus (PCR) Not detected Stool Cryptosporidium PCR Not detected Stl E.coli Shiga Tox PCR Not detected St Sh/Enteroin Ecoli PCR Not detected Stool E coli O157 PCR Not detected Stl Enterotoxigenic E PCR Not detected Stool EPEC (PCR) Not detected Stl E. histolytica PCR Not detected Stool Giardia Lamblia PCR Not detected Stool Sapovirus (PCR) Not detected Stl P. shigelloides PCR Not detected St Y.enterocolitica PCR Not detected Stool Vibrio (PCR) Not detected Stl Vibrio cholerae PCR Not detected Stl Enteroaggr Ecoli PCR Not detected Stl Norovirus GI/GII PCR Detected H Campylobacter (PCR) Not detected C. difficile Tox (PCR) Not detected SARS-CoV-2 (PCR) Influenza A (RT-PCR) Influenza B (RT-PCR) RSV (PCR) Salmonella (PCR) Not detected 09/01/22 15:30 WBC RBC Hgb Hct MCV MCH MCHC RDW Plt Count Neut % (Auto) Lymph % (Auto) [place] % (Auto) Eos % (Auto) Baso % (Auto) Neut # (Auto) Lymph # (Auto) [place] # (Auto) Eos # (Auto) Baso # (Auto) Sodium Potassium Chloride Carbon Dioxide BUN Creatinine Estimated GFR BUN/Creatinine Ratio Glucose Hemoglobin A1c Lactate Calcium Magnesium Total Bilirubin AST ALT Alkaline Phosphatase Total Protein Albumin Globulin Albumin/Globulin Ratio Lipase Procalcitonin Urine RBC None seen Urine WBC 10-30/hpf H Ur Squamous Epith Cells None seen Urine Bacteria Many (>30) H Stl C. cayetanensis PCR Stool Rotavirus (PCR) Stool Adenovirus (PCR) Stool Astrovirus (PCR) Stool Cryptosporidium PCR Stl E.coli Shiga Tox PCR St Sh/Enteroin Ecoli PCR Stool E coli O157 PCR Stl Enterotoxigenic E PCR Stool EPEC (PCR) Stl E. histolytica PCR Stool Giardia Lamblia PCR Stool Sapovirus (PCR) Stl P. shigelloides PCR St Y.enterocolitica PCR Stool Vibrio (PCR) Stl Vibrio cholerae PCR Stl Enteroaggr Ecoli PCR Stl Norovirus GI/GII PCR Campylobacter (PCR) C. difficile Tox (PCR) SARS-CoV-2 (PCR) Influenza A (RT-PCR) Influenza B (RT-PCR) RSV (PCR) Salmonella (PCR) Assessment & Plan Assessment & Plan narrative: # acute sepsis -sirs criteria met with lactate of 4, WBC 19, heart rate 102, procalcitonin 167. Norovirus positive on GI PCR and UA with pyuria. -source likely norovirus plus possible UTI. CT CAP largely unremarkable but will some bowel wall thickening from norovirus. 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 COVID negative. DVT prophylaxis with Lovenox. Proxy is daughter Clarissa. I have reviewed home meds and used all available resources to reconcile the home meds. This patient will be admitted as inpatient and will require greater than 2 midnights of hospital time to treat sepsis due to norovirus and possible UTI. Time Spent With Patient Critical Care time: I spent a total of [] minutes of critical care time on this patient's care today; this time is exclusive of procedural time.
[2022-09-01] MEDS: PIPERACILLIN/TAZO 4.5 GM in SODIUM CHLORIDE 0.9% 100 ML IV (16:45)
[2022-09-01] MEDS: POTASSIUM CHLORIDE 20 MEQ TAB 40 MEQ PO (16:58)
[2022-09-01 17:27] LABS: TSH w/ Reflex to FT4 0.46 uIU/mL (0.47-4.68)
[2022-09-01] MEDS: SODIUM CHLORIDE 0.9% 1,000 ML 100 ML IV (17:40)
[2022-09-01] MEDS: MAGNESIUM SULFATE 2 GM/50 ML PIGGYBACK IV (17:40)
[2022-09-01 17:57] LABS: Free T4, Direct Thyroxine 1.22 ng/dL (0.78-2.19)
[2022-09-01 18:19] LABS: Lactate (Lactic Acid) 2.2 mmol/L (0.7-2.1)
[2022-09-01] MEDS: PIPERACILLIN/TAZO 3.375 GM in SODIUM CHLORIDE 0.9% 100 ML IV (20:30)
[2022-09-01 20:36] LABS: Reflexed Lactate in 2 Hours Y
[2022-09-01 21:32] LABS: Lactate 2HR (Lactic Acid Rflx) 2.8 mmol/L (0.7-2.1)
[2022-09-01 23:44] LABS: Lactate (Lactic Acid) 1.9 mmol/L (0.7-2.1)
[2022-09-02] MEDS: SODIUM CHLORIDE 0.9% 1,000 ML 100 ML IV (00:05)
--- NOTE | 2022-09-02 00:47 | DI.US.S_ITS ---
PROCEDURE: US PELVIC LIMITED INDICATIONS: UNABLE TO REMOVE JACOBS CATHETER TECHNIQUE: Real-time transabdominal scanning was performed of the pelvic organs, with image documentation. COMPARISON: None. FINDINGS: The urinary bladder was not visible due to lack of good acoustic window. IMPRESSION: Nonvisualized urinary bladder. We strive to produce accurate, complete, and clear reports of imaging services. To assist us in improving patient care, this report was composed using standard report templates and voice recognition software. Therefore, it may contain abnormal punctuation, insertions and/or omissions. Occasional wrong-word or sound-alike substitutions may occur. Though we review the report and make efforts to correct it, we do recommend that the report be read carefully in proper context to recognize any text inaccuracies. Dictated by: Fannie Clements M.D. on 09/02/2022 at 2:13 Approved by: Fannie Clements M.D. on 09/02/2022 at 2:14
--- NOTE | 2022-09-02 01:45 | PM.EVENT ---
Event Note Date Patient Seen: 09/02/22 Time Patient Seen: 01:00 Event Note (Rapid Response, Code, or fall): Called by patient's RN about romero malfunction. Patient noted some discomfort, and RN noted urine leaking around romero. Attempt was made to remove it. Per RN 10cc of fluid was removed from balloon port. Subsequently attempt was made to remove unsuccessfully. Patient has history of uterine prolapse. Urine continue to drain and was clear and yellow. No blood or clots noted. Per documentation romero was inserted yesterday. Balloon port was cut in order to remove valve, and after this no fluid was drained. I attempted to remove romero and noted significant bulging of urethral tissue which caused pain. Guidewire was passed through port and this did not lead to drainage of any fluid. Ultrasound was ordered which did not show evidence of inflated balloon. Called covering urology who assisted in these recommendations. After these attempt romero continued to drain yellow urine, patient was requesting a few hours of sleep before trying to remove again, and she remained asymptomatic when removal was not being attempted. Did discuss with oncoming physician to consider trying to flush the port to see if balloon cuffing perhaps occurred and to call covering urologist for further recommendations.
[2022-09-02 02:00] VITALS: BP 105/57; PULSE 84; RESP 17; TEMP 37.2; O2SAT 97
--- NOTE | 2022-09-02 02:17 | PC.NURSE ---
Pt complained of discomfort and pain around Orozco catheter beginning around 1999. Orozco was noted to be draining appropriately and pt denied pain meds. Pt continued to have severe discomfort around Orozco, and began noticing some leakage. This RN flushed Orozco, small amount of sediment noted with flush drainage. Pt felt relief, then had the same discomfort about 15 minutes later. Decision made to remove Orozco per nursing protocol, 10 mL of fluid removed from balloon port. Catheter was unable to be removed. Other RN at bedside to help assess catheter. Overnight hospitalist called, at bedside to assess catheter, pain medication and pelvis US ordered.. Plan to wait for urology in AM. Orozco noted to still be draining with some leakage around catheter, pain having minimal. Pain medications offered and denied.
[2022-09-02 02:53] LABS: Enterococcus species Not Detected (Not Detect); Listeria monocytogenes Not Detected (Not Detect); Staphylococcus species Not Detected (Not Detect); Streptococcus agalactiae (Gr B Not Detected (Not Detect); Streptococcus pneumonia Not Detected (Not Detect); Streptococcus pyogenes (Gr A) Not Detected (Not Detect); Streptococcus species Not Detected (Not Detect)
[2022-09-02 02:54] LABS: Acinetobacter baumannii Not Detected (Not Detect); E. coli Detected (Not Detect); Enterobacter cloacae complex Not Detected (Not Detect); Enterobacteriaceae species Detected (Not Detect); KPC (carbapenem-resist gene) Not Detected (Not Detect)
[2022-09-02 02:55] LABS: Candida albicans Not Detected (Not Detect); Candida glabrata Not Detected (Not Detect); Candida krusei Not Detected (Not Detect); Candida parapsilosis Not Detected (Not Detect); Candida tropicalis Not Detected (Not Detect); Haemophilus influenzae Not Detected (Not Detect); Neisseria meningitidis Not Detected (Not Detect); Proteus species Not Detected (Not Detect); Pseudomonas aeruginosa Not Detected (Not Detect); Serratia marcescens Not Detected (Not Detect)
[2022-09-02] MEDS: PIPERACILLIN/TAZO 3.375 GM in SODIUM CHLORIDE 0.9% 100 ML IV ×3 (04:59→20:10)
[2022-09-02 05:50] LABS: Alanine Aminotransferase 29 IU/L (<35); Albumin 2.9 g/dL (3.5-5.0); Alkaline Phosphatase 75 U/L (38-126); Aspartate Aminotransferase 33 IU/L (14-36); BUN Creatinine Ratio 20.8 (6-22); Bilirubin Total 0.5 mg/dL (0.2-1.3); Blood Urea Nitrogen 16 mg/dL (7-17); Calcium 7.3 mg/dL (8.4-10.2); Carbon Dioxide 21 mmol/L (22-32); Chloride 113 mmol/L (98-107); Estimated Glomerular Filt Rate > 60 mL/min (>60); Globulin 2.8 g/dL (1.7-4.1); Glucose 97 mg/dL (80-110); HEMOLYSIS 41 (0-50); Magnesium 2.9 mg/dL (1.6-2.3); Potassium 4.4 mmol/L (3.4-5.1); Sodium 139 mmol/L (137-145); Total Protein 5.7 g/dL (6.3-8.2)
[2022-09-02 06:11] LABS: Hematocrit 31.9 % (36-46); Hemoglobin 10.5 g/dL (12.0-16.0); Mean Corpuscular HGB Conc 32.9 % (30-36); Mean Corpuscular Hemoglobin 31.1 PG (26-34); Mean Corpuscular Volume 94.6 fL (80-100); Platelet Count 140 X10^3/uL (150-400); Red Blood Cell Count 3.38 X10^6/uL (4.0-5.2); Red Cell Distribution Width 12.6 % (11.6-14.8); White Blood Cell Count 18.8 X10^3/uL (4.5-11.0)
[2022-09-02 06:14] LABS: Add Manual Diff / Slide Review YES
[2022-09-02 06:36] LABS: Procalcitonin 107 ng/mL (<0.5)
[2022-09-02 06:47] LABS: Neutrophils Absolute Manual 13160 /uL (3000-5900); Total Cells Counted 100
[2022-09-02 06:49] LABS: RBC Morphology Normal Morphology
--- NOTE | 2022-09-02 08:06 | PC.NURSE ---
patient declining some medical care including ACHS checks and insulin
--- NOTE | 2022-09-02 08:09 | P.PN_ITS ---
Subjective Subjective Date Patient Seen: 09/02/22 Interval history: Patient denies anymore NV or diarrhea. Says she feels 100% better. Wants to go home. However WBC still 18. Exam Vital Signs (past 8 hours): - 09/02/22 02:00 Temperature 98.9 F Pulse Rate 84 Respiratory Rate 17 Blood Pressure 105/57 L Pulse Oximetry 97 Oxygen Delivery Method Room Air Oxygen Flow Rate 0 Narrative Exam Narrative: GEN: no acute distress HEENT: moist mucous membranes, PERRL NECK: trachea midline, no JVD CV: regular rate and rhythm, no murmurs PULM: clear bilaterally ABD: soft, nontender, nondistended, no organomegaly EXT: warm and well perfused with no edema NEURO: awake, alert, oriented, no focal deficits Objective Labs 09/02/22 05:20 09/02/22 05:20 Labs: Laboratory Results - last 24 hr 09/01/22 09/01/22 09/01/22 11:40 11:40 11:40 WBC 19.1 H RBC 4.19 Hgb 13.0 Hct 38.7 MCV 92.2 MCH 30.9 MCHC 33.5 RDW 12.1 Plt Count 185 Neut % (Auto) 87.9 H Lymph % (Auto) 4.7 L [place] % (Auto) 7.3 Eos % (Auto) 0.0 L Baso % (Auto) 0.1 Neut # (Auto) 48588 H Lymph # (Auto) 900 L [place] # (Auto) 1400 H Eos # (Auto) 0 Baso # (Auto) 0 Total Counted Seg Neutrophils % Band Neutrophils % Lymphocytes % (Manual) Monocytes % (Manual) Metamyelocytes % Neutrophils # (Manual) RBC Morphology Sodium 135 L Potassium 3.3 L Chloride 101 Carbon Dioxide 22 BUN 21 H Creatinine 1.12 H Estimated GFR 55 L BUN/Creatinine Ratio 18.8 Glucose 221 H Hemoglobin A1c Lactate 3.8 H Calcium 8.8 Magnesium 1.6 Total Bilirubin 0.6 AST 52 H ALT 38 H Alkaline Phosphatase 97 Total Protein 7.2 Albumin 3.9 Globulin 3.3 Albumin/Globulin Ratio 1.2 Lipase 20 L Procalcitonin TSH Free T4 Urine RBC Urine WBC Ur Squamous Epith Cells Urine Bacteria Stl C. cayetanensis PCR Stool Rotavirus (PCR) Stool Adenovirus (PCR) Stool Astrovirus (PCR) Stool Cryptosporidium PCR Stl E.coli Shiga Tox PCR St Sh/Enteroin Ecoli PCR Stool E coli O157 PCR Stl Enterotoxigenic E PCR Stool EPEC (PCR) Stl E. histolytica PCR Stool Giardia Lamblia PCR Stool Sapovirus (PCR) Stl P. shigelloides PCR St Y.enterocolitica PCR Stool Vibrio (PCR) Stl Vibrio cholerae PCR Stl Enteroaggr Ecoli PCR Stl Norovirus GI/GII PCR A. baumannii (PCR) Campylobacter (PCR) María Elena albicans (PCR) C. glabrata (PCR) C. krusei (PCR) C. parapsilosis (PCR) C. tropicalis (PCR) C. difficile Tox (PCR) SARS-CoV-2 (PCR) Enterobacteriac sp PCR E. cloacae complex PCR Enterococcus sp PCR E. coli (PCR) H. influenzae (PCR) Influenza A (RT-PCR) Influenza B (RT-PCR) Klebsiella oxytoca PCR Klebsiella pneumoniae List. monocytogenes PCR N. meningitidis (PCR) Proteus species (PCR) RSV (PCR) Salmonella (PCR) Serratia marcescens PCR Staphylococcus sp PCR Staph aureus (PCR) mecA-Methicil Res Gene Streptococcus sp PCR Group A Strep (PCR) Strep agalactiae (PCR) Strep pneumoniae (PCR) P. aeruginosa (PCR) Zohra/B-Vanco Res Genes KPC-Carbap Res Gene PCR 09/01/22 09/01/22 09/01/22 11:40 11:40 11:40 WBC RBC Hgb Hct MCV MCH MCHC RDW Plt Count Neut % (Auto) Lymph % (Auto) [place] % (Auto) Eos % (Auto) Baso % (Auto) Neut # (Auto) Lymph # (Auto) [place] # (Auto) Eos # (Auto) Baso # (Auto) Total Counted Seg Neutrophils % Band Neutrophils % Lymphocytes % (Manual) Monocytes % (Manual) Metamyelocytes % Neutrophils # (Manual) RBC Morphology Sodium Potassium Chloride Carbon Dioxide BUN Creatinine Estimated GFR BUN/Creatinine Ratio Glucose Hemoglobin A1c Lactate Calcium Magnesium Total Bilirubin AST ALT Alkaline Phosphatase Total Protein Albumin Globulin Albumin/Globulin Ratio Lipase Procalcitonin 167 H TSH 0.46 L Free T4 1.22 Urine RBC Urine WBC Ur Squamous Epith Cells Urine Bacteria Stl C. cayetanensis PCR Stool Rotavirus (PCR) Stool Adenovirus (PCR) Stool Astrovirus (PCR) Stool Cryptosporidium PCR Stl E.coli Shiga Tox PCR St Sh/Enteroin Ecoli PCR Stool E coli O157 PCR Stl Enterotoxigenic E PCR Stool EPEC (PCR) Stl E. histolytica PCR Stool Giardia Lamblia PCR Stool Sapovirus (PCR) Stl P. shigelloides PCR St Y.enterocolitica PCR Stool Vibrio (PCR) Stl Vibrio cholerae PCR Stl Enteroaggr Ecoli PCR Stl Norovirus GI/GII PCR A. baumannii (PCR) Campylobacter (PCR) María Elena albicans (PCR) C. glabrata (PCR) C. krusei (PCR) C. parapsilosis (PCR) C. tropicalis (PCR) C. difficile Tox (PCR) SARS-CoV-2 (PCR) Negative Enterobacteriac sp PCR E. cloacae complex PCR Enterococcus sp PCR E. coli (PCR) H. influenzae (PCR) Influenza A (RT-PCR) Flu a negative Influenza B (RT-PCR) Flu b negative Klebsiella oxytoca PCR Klebsiella pneumoniae List. monocytogenes PCR N. meningitidis (PCR) Proteus species (PCR) RSV (PCR) Negative Salmonella (PCR) Serratia marcescens PCR Staphylococcus sp PCR Staph aureus (PCR) mecA-Methicil Res Gene Streptococcus sp PCR Group A Strep (PCR) Strep agalactiae (PCR) Strep pneumoniae (PCR) P. aeruginosa (PCR) Zohra/B-Vanco Res Genes KPC-Carbap Res Gene PCR 09/01/22 09/01/22 09/01/22 11:40 11:47 13:30 WBC RBC Hgb Hct MCV MCH MCHC RDW Plt Count Neut % (Auto) Lymph % (Auto) [place] % (Auto) Eos % (Auto) Baso % (Auto) Neut # (Auto) Lymph # (Auto) [place] # (Auto) Eos # (Auto) Baso # (Auto) Total Counted Seg Neutrophils % Band Neutrophils % Lymphocytes % (Manual) Monocytes % (Manual) Metamyelocytes % Neutrophils # (Manual) RBC Morphology Sodium Potassium Chloride Carbon Dioxide BUN Creatinine Estimated GFR BUN/Creatinine Ratio Glucose Hemoglobin A1c 6.7 H Lactate Calcium Magnesium Total Bilirubin AST ALT Alkaline Phosphatase Total Protein Albumin Globulin Albumin/Globulin Ratio Lipase Procalcitonin TSH Free T4 Urine RBC Urine WBC Ur Squamous Epith Cells Urine Bacteria Stl C. cayetanensis PCR Not detected Stool Rotavirus (PCR) Not detected Stool Adenovirus (PCR) Not detected Stool Astrovirus (PCR) Not detected Stool Cryptosporidium PCR Not detected Stl E.coli Shiga Tox PCR Not detected St Sh/Enteroin Ecoli PCR Not detected Stool E coli O157 PCR Not detected Stl Enterotoxigenic E PCR Not detected Stool EPEC (PCR) Not detected Stl E. histolytica PCR Not detected Stool Giardia Lamblia PCR Not detected Stool Sapovirus (PCR) Not detected Stl P. shigelloides PCR Not detected St Y.enterocolitica PCR Not detected Stool Vibrio (PCR) Not detected Stl Vibrio cholerae PCR Not detected Stl Enteroaggr Ecoli PCR Not detected Stl Norovirus GI/GII PCR Detected H A. baumannii (PCR) Not detected Campylobacter (PCR) Not detected María Elena albicans (PCR) Not detected C. glabrata (PCR) Not detected C. krusei (PCR) Not detected C. parapsilosis (PCR) Not detected C. tropicalis (PCR) Not detected C. difficile Tox (PCR) Not detected SARS-CoV-2 (PCR) Enterobacteriac sp PCR Detected H E. cloacae complex PCR Not detected Enterococcus sp PCR Not detected E. coli (PCR) Detected H H. influenzae (PCR) Not detected Influenza A (RT-PCR) Influenza B (RT-PCR) Klebsiella oxytoca PCR Not detected Klebsiella pneumoniae Not detected List. monocytogenes PCR Not detected N. meningitidis (PCR) Not detected Proteus species (PCR) Not detected RSV (PCR) Salmonella (PCR) Not detected Serratia marcescens PCR Not detected Staphylococcus sp PCR Not detected Staph aureus (PCR) Not detected mecA-Methicil Res Gene Not Reportable Streptococcus sp PCR Not detected Group A Strep (PCR) Not detected Strep agalactiae (PCR) Not detected Strep pneumoniae (PCR) Not detected P. aeruginosa (PCR) Not detected Zohra/B-Vanco Res Genes Not Reportable KPC-Carbap Res Gene PCR Not detected 09/01/22 09/01/22 09/01/22 13:55 13:55 15:30 WBC RBC Hgb Hct MCV MCH MCHC RDW Plt Count Neut % (Auto) Lymph % (Auto) [place] % (Auto) Eos % (Auto) Baso % (Auto) Neut # (Auto) Lymph # (Auto) [place] # (Auto) Eos # (Auto) Baso # (Auto) Total Counted Seg Neutrophils % Band Neutrophils % Lymphocytes % (Manual) Monocytes % (Manual) Metamyelocytes % Neutrophils # (Manual) RBC Morphology Sodium 135 L Potassium 3.0 L Chloride 102 Carbon Dioxide 21 L BUN 20 H Creatinine 0.93 Estimated GFR > 60 BUN/Creatinine Ratio 21.5 Glucose 173 H Hemoglobin A1c Lactate 4.0 H Calcium 7.0 L Magnesium Total Bilirubin AST ALT Alkaline Phosphatase Total Protein Albumin Globulin Albumin/Globulin Ratio Lipase Procalcitonin TSH Free T4 Urine RBC None seen Urine WBC 10-30/hpf H Ur Squamous Epith Cells None seen Urine Bacteria Many (>30) H Stl C. cayetanensis PCR Stool Rotavirus (PCR) Stool Adenovirus (PCR) Stool Astrovirus (PCR) Stool Cryptosporidium PCR Stl E.coli Shiga Tox PCR St Sh/Enteroin Ecoli PCR Stool E coli O157 PCR Stl Enterotoxigenic E PCR Stool EPEC (PCR) Stl E. histolytica PCR Stool Giardia Lamblia PCR Stool Sapovirus (PCR) Stl P. shigelloides PCR St Y.enterocolitica PCR Stool Vibrio (PCR) Stl Vibrio cholerae PCR Stl Enteroaggr Ecoli PCR Stl Norovirus GI/GII PCR A. baumannii (PCR) Campylobacter (PCR) María Elena albicans (PCR) C. glabrata (PCR) C. krusei (PCR) C. parapsilosis (PCR) C. tropicalis (PCR) C. difficile Tox (PCR) SARS-CoV-2 (PCR) Enterobacteriac sp PCR E. cloacae complex PCR Enterococcus sp PCR E. coli (PCR) H. influenzae (PCR) Influenza A (RT-PCR) Influenza B (RT-PCR) Klebsiella oxytoca PCR Klebsiella pneumoniae List. monocytogenes PCR N. meningitidis (PCR) Proteus species (PCR) RSV (PCR) Salmonella (PCR) Serratia marcescens PCR Staphylococcus sp PCR Staph aureus (PCR) mecA-Methicil Res Gene Streptococcus sp PCR Group A Strep (PCR) Strep agalactiae (PCR) Strep pneumoniae (PCR) P. aeruginosa (PCR) Zohra/B-Vanco Res Genes KPC-Carbap Res Gene PCR 09/01/22 09/01/22 09/01/22 18:36 21:13 23:25 WBC RBC Hgb Hct MCV MCH MCHC RDW Plt Count Neut % (Auto) Lymph % (Auto) [place] % (Auto) Eos % (Auto) Baso % (Auto) Neut # (Auto) Lymph # (Auto) [place] # (Auto) Eos # (Auto) Baso # (Auto) Total Counted Seg Neutrophils % Band Neutrophils % Lymphocytes % (Manual) Monocytes % (Manual) Metamyelocytes % Neutrophils # (Manual) RBC Morphology Sodium Potassium Chloride Carbon Dioxide BUN Creatinine Estimated GFR BUN/Creatinine Ratio Glucose Hemoglobin A1c Lactate 2.2 H 2.8 H 1.9 Calcium Magnesium Total Bilirubin AST ALT Alkaline Phosphatase Total Protein Albumin Globulin Albumin/Globulin Ratio Lipase Procalcitonin TSH Free T4 Urine RBC Urine WBC Ur Squamous Epith Cells Urine Bacteria Stl C. cayetanensis PCR Stool Rotavirus (PCR) Stool Adenovirus (PCR) Stool Astrovirus (PCR) Stool Cryptosporidium PCR Stl E.coli Shiga Tox PCR St Sh/Enteroin Ecoli PCR Stool E coli O157 PCR Stl Enterotoxigenic E PCR Stool EPEC (PCR) Stl E. histolytica PCR Stool Giardia Lamblia PCR Stool Sapovirus (PCR) Stl P. shigelloides PCR St Y.enterocolitica PCR Stool Vibrio (PCR) Stl Vibrio cholerae PCR Stl Enteroaggr Ecoli PCR Stl Norovirus GI/GII PCR A. baumannii (PCR) Campylobacter (PCR) María Elena albicans (PCR) C. glabrata (PCR) C. krusei (PCR) C. parapsilosis (PCR) C. tropicalis (PCR) C. difficile Tox (PCR) SARS-CoV-2 (PCR) Enterobacteriac sp PCR E. cloacae complex PCR Enterococcus sp PCR E. coli (PCR) H. influenzae (PCR) Influenza A (RT-PCR) Influenza B (RT-PCR) Klebsiella oxytoca PCR Klebsiella pneumoniae List. monocytogenes PCR N. meningitidis (PCR) Proteus species (PCR) RSV (PCR) Salmonella (PCR) Serratia marcescens PCR Staphylococcus sp PCR Staph aureus (PCR) mecA-Methicil Res Gene Streptococcus sp PCR Group A Strep (PCR) Strep agalactiae (PCR) Strep pneumoniae (PCR) P. aeruginosa (PCR) Zohra/B-Vanco Res Genes KPC-Carbap Res Gene PCR 09/02/22 09/02/22 09/02/22 05:20 05:20 05:20 WBC 18.8 H RBC 3.38 L Hgb 10.5 L Hct 31.9 L MCV 94.6 MCH 31.1 MCHC 32.9 RDW 12.6 Plt Count 140 L Neut % (Auto) Not Reportable Lymph % (Auto) Not Reportable [place] % (Auto) Not Reportable Eos % (Auto) Not Reportable Baso % (Auto) Not Reportable Neut # (Auto) Lymph # (Auto) Not Reportable [place] # (Auto) Not Reportable Eos # (Auto) Baso # (Auto) Not Reportable Total Counted 100 Seg Neutrophils % 64.0 Band Neutrophils % 6.0 Lymphocytes % (Manual) 23.0 L Monocytes % (Manual) 6.0 Metamyelocytes % 1.0 H Neutrophils # (Manual) 15128 H RBC Morphology Normal morphology Sodium 139 Potassium 4.4 D Chloride 113 H Carbon Dioxide 21 L BUN 16 Creatinine 0.77 Estimated GFR > 60 BUN/Creatinine Ratio 20.8 Glucose 97 Hemoglobin A1c Lactate Calcium 7.3 L Magnesium 2.9 H Total Bilirubin 0.5 AST 33 ALT 29 Alkaline Phosphatase 75 Total Protein 5.7 L Albumin 2.9 L Globulin 2.8 Albumin/Globulin Ratio 1.0 Lipase Procalcitonin 107 H TSH Free T4 Urine RBC Urine WBC Ur Squamous Epith Cells Urine Bacteria Stl C. cayetanensis PCR Stool Rotavirus (PCR) Stool Adenovirus (PCR) Stool Astrovirus (PCR) Stool Cryptosporidium PCR Stl E.coli Shiga Tox PCR St Sh/Enteroin Ecoli PCR Stool E coli O157 PCR Stl Enterotoxigenic E PCR Stool EPEC (PCR) Stl E. histolytica PCR Stool Giardia Lamblia PCR Stool Sapovirus (PCR) Stl P. shigelloides PCR St Y.enterocolitica PCR Stool Vibrio (PCR) Stl Vibrio cholerae PCR Stl Enteroaggr Ecoli PCR Stl Norovirus GI/GII PCR A. baumannii (PCR) Campylobacter (PCR) María Elena albicans (PCR) C. glabrata (PCR) C. krusei (PCR) C. parapsilosis (PCR) C. tropicalis (PCR) C. difficile Tox (PCR) SARS-CoV-2 (PCR) Enterobacteriac sp PCR E. cloacae complex PCR Enterococcus sp PCR E. coli (PCR) H. influenzae (PCR) Influenza A (RT-PCR) Influenza B (RT-PCR) Klebsiella oxytoca PCR Klebsiella pneumoniae List. monocytogenes PCR N. meningitidis (PCR) Proteus species (PCR) RSV (PCR) Salmonella (PCR) Serratia marcescens PCR Staphylococcus sp PCR Staph aureus (PCR) mecA-Methicil Res Gene Streptococcus sp PCR Group A Strep (PCR) Strep agalactiae (PCR) Strep pneumoniae (PCR) P. aeruginosa (PCR) Zohra/B-Vanco Res Genes KPC-Carbap Res Gene PCR PFSH Social History household members: family Smoking Status: Former smoker alcohol intake: never Assessment & Plan Assessment & Plan narrative: # acute sepsis, improving -sirs criteria met with lactate of 4, WBC 19, heart rate 102, procalcitonin 167. Norovirus positive on GI PCR and UA with pyuria. -source likely norovirus plus possible UTI. CT CAP largely unremarkable but will some bowel wall thickening from norovirus. -continue zosyn -continue fluids -f/u blood cultures -trend procal and WBC, procal now 107 and WBC 18 # lactic acidosis, resolved -LA up to 4 in ED -s/p 2L boluses -now 1.9 # UTI -UA with pyuria, however patient denies urinary symptoms -abx as above -urine culture with >100k GNR # norovirus positive -explains NVD -supportive care -fluids as above # hypokalemia -monitor and replete PRN # new-onset diabetes -A1c 6.7% -low dose SSI -headstart teacher consult Code status is full code. COVID negative. DVT prophylaxis with Lovenox. Proxy is daughter Clarissa. I have reviewed home meds and used all available resources to reconcile the home meds. Dispo: Home in 1-2 days. Time Spent With Patient Critical Care time: I spent a total of [] minutes of critical care time on this patient's care today; this time is exclusive of procedural time. Quality VTE Deep Vein Thrombosis/Pulmonary Embolism Present on Admission: No
[2022-09-02] MEDS: MINERAL OIL LIGHT TOPICAL 10 ML 30 ML TOP (09:00)
--- NOTE | 2022-09-02 09:01 | PC.NURSE ---
Addendum entered by Dash Raymundo R.N. 09/02/22 09:59: BK Jaquez completed intervention, romero immediately fell out on it's own after mineral oil application. patient tolerated well. Original Note: per Dr. Hinse, inject mineral oil into romero catheter balloon port. patient refused having male medical staff perform intervention. awaiting female staff availability
[2022-09-02 09:16] VITALS: BP 110/66; PULSE 88; RESP 17; TEMP 36.8; O2SAT 98
--- NOTE | 2022-09-02 14:39 | CM.DANOTE ---
Addendum entered by Niya Heck R.N. 09/02/22 14:55: Niya Heck RN Case Manager Original Note: DCP: Assessment: Pt is a 66yo female who admitted to hospital via pov with family under with c/o nausea, vomiting, diarrhea, lightheadedness under the care of hospitalist team is noted to have sepsis, lactic acidosis due to norovirus. This CM unable to meet with pt in her room due to isolation precautions. This CM called and spoke with pt's daughter Clarissa who is pt's main contact re pt living situation. Pt daughter confirms that pt lives in [place] and that pt cares for her aging mother who lives with her. Clarissa also states that pt drives at baseline and that she does not use dme. 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 Insurance: Medicare Plan: Will follow closely for a plan. Either HH or SNF when medically stable. Discharge Planning/Care Management CM Discharge Assessment Start: 09/02/22 14:33 Freq: Status: Active Protocol: Document 09/02/22 14:34 CHICHI (Rec: 09/02/22 14:38 [id number]) Discharge Planning Assessment Assigned Mold Changer Niya Heck RN Case Manager Advance Directives? No History Provided By Patient,Family Member,Medical Record Has Patient been admitted in last 30 No days? Prior Living Arrangements House Household Members other Comment Pt's Mother lives with her. Daughter and family live in a home on pt's property Type of transporation used prior to Drives own vehicle admit Independent with ADL's Yes Is patient alert and oriented? Yes Caregiver for Another Yes: Her aging mother lives with her Comment unsure as of yet. TBD Barriers to Discharge No Whiteboard Updated in Patient Room with Yes name and ext. # of Mold Changer Review Status In Process Next Review Type Continued Stay Review
[2022-09-02 16:35] LABS: Hematocrit 34.6 % (36-46); Hemoglobin 11.6 g/dL (12.0-16.0); Mean Corpuscular HGB Conc 33.5 % (30-36); Mean Corpuscular Hemoglobin 31.1 PG (26-34); Mean Corpuscular Volume 92.8 fL (80-100); Platelet Count 152 X10^3/uL (150-400); Red Blood Cell Count 3.73 X10^6/uL (4.0-5.2); Red Cell Distribution Width 12.4 % (11.6-14.8); White Blood Cell Count 19.5 X10^3/uL (4.5-11.0)
[2022-09-02 17:01] VITALS: BP 108/68; PULSE 79; RESP 16; TEMP 36.6; O2SAT 100
[2022-09-02 17:08] LABS: Add Manual Diff / Slide Review YES
[2022-09-02 17:38] LABS: Neutrophils Absolute Manual 16380 /uL (3000-5900); Total Cells Counted 100
[2022-09-02 17:39] LABS: RBC Morphology Normal Morphology
[2022-09-02 20:00] VITALS: BP 117/56; PULSE 80; RESP 17; TEMP 37; O2SAT 94
[2022-09-03 02:00] VITALS: BP 149/79; PULSE 72; RESP 17; TEMP 36.2; O2SAT 94
[2022-09-03] MEDS: PIPERACILLIN/TAZO 3.375 GM in SODIUM CHLORIDE 0.9% 100 ML IV (04:17)
--- NOTE | 2022-09-03 04:46 | PC.NURSE ---
When this PROCESSING TECH went into the room with BK Carmona, this PROCESSING TECH noticed that the patient had a hearted blanket that was plugged in. This PROCESSING TECH informed patient of hospital policy that heated blankets are not allowed in the hospital due to them being a fire hazard. Patient became very upset stating well its not even on, it has a 2 hour timer and i dont even leave it on that long. This PROCESSING TECH still informed patient of hospital policy. BK Carmona removed cord to the blanket and placed it with patient belongings. city assessorBK Carrera notified.
[2022-09-03 04:51] LABS: Hematocrit 35.7 % (36-46); Hemoglobin 11.9 g/dL (12.0-16.0); Mean Corpuscular HGB Conc 33.4 % (30-36); Mean Corpuscular Volume 92.6 fL (80-100); Platelet Count 166 X10^3/uL (150-400); Red Blood Cell Count 3.86 X10^6/uL (4.0-5.2); Red Cell Distribution Width 12.5 % (11.6-14.8); White Blood Cell Count 20.9 X10^3/uL (4.5-11.0)
[2022-09-03 04:54] LABS: Alanine Aminotransferase 29 IU/L (<35); Albumin 3.1 g/dL (3.5-5.0); Alkaline Phosphatase 96 U/L (38-126); Aspartate Aminotransferase 28 IU/L (14-36); BUN Creatinine Ratio 21.1 (6-22); Bilirubin Total 0.5 mg/dL (0.2-1.3); Blood Urea Nitrogen 16 mg/dL (7-17); Calcium 8.3 mg/dL (8.4-10.2); Carbon Dioxide 20 mmol/L (22-32); Chloride 109 mmol/L (98-107); Estimated Glomerular Filt Rate > 60 mL/min (>60); Globulin 3.1 g/dL (1.7-4.1); Glucose 123 mg/dL (80-110); HEMOLYSIS < 15 (0-50); Magnesium 2.4 mg/dL (1.6-2.3); Potassium 4.2 mmol/L (3.4-5.1); Sodium 137 mmol/L (137-145); Total Protein 6.2 g/dL (6.3-8.2)
[2022-09-03 04:56] LABS: Add Manual Diff / Slide Review YES
[2022-09-03 07:48] LABS: Hypersegmented Neutrophils 1+; Neutrophils Absolute Manual 15048 /uL (3000-5900); Total Cells Counted 100
[2022-09-03 08:02] LABS: RBC Morphology Normal Morphology
--- NOTE | 2022-09-03 12:02 | PM.DS.1 ---
History of Present Illness History of Present Illness Date Patient Seen: 09/03/22 Chief complaint: Light headed, vomiting Narrative: Priti Gonzales is a 66-year-old female with no significant past medical history who presents with acute-onset NVD and found to have sepsis, lactic acidosis due to norovirus. Patient notes a few days of worsening diarrhea, NV and even had an accident overnight where she defecated herself in bed while sleeping. She feels very tired and fatigued. Denies abd pain. Denies urinary frequency, burning or urgency. Daughter is at bedside and has had no symptoms, including her surrounding family members. She reports not eating or drinking well due to the nausea, which has made her lightheaded and dizzy easily. Denies CP, headache, LE edema. In the ED noted to have lactic acid of 4, procal of 167 and WBC 19. Given 2L NS boluses. Discharge Providers Provider Date of admission: 09/01/22 16:47 Discharge Date: 09/03/22 Discharge provider: Rei Hines DO Summary Hospital Course Discharge Diagnosis: # acute sepsis secondary to E. coli bacteremia in setting of acute norovirus -sirs criteria met with lactate of 4, WBC 19, heart rate 102, procalcitonin 167. Norovirus positive on GI PCR and UA with pyuria. -urinary source as urine culture with e. coli -CT CAP largely unremarkable but will some bowel wall thickening from norovirus. -given zosyn -continue fluids -blood cultures positive 1/2 for E. coli sensitive to cipro -discharged on 1 week of po cipro and flagyl for possible colitis -pt to f/u with Dr. Michelle for new PCP appt next week for referral for colonoscopy as patient has never had one. Also for repeat lab draw to assess leukocytosis. # lactic acidosis, resolved -LA up to 4 in ED -s/p 2L boluses -now 1.9 # norovirus positive -explains NVD prior to admission, resolved before discharge -supportive care -fluids as above # hypokalemia -monitor and replete PRN # new-onset diabetes -A1c 6.7% -low dose SSI -partition assembly machine operator consulted -patient to attempt to improve diet to control diabetes Hospital Course: See above problem list. Time Spent with Patient Time spent: Greater than 30 minutes Exam Vital Signs (past 8 hours): Oxygen Delivery Method Room Air Oxygen Flow Rate 0 Narrative Exam Narrative: GEN: no acute distress HEENT: moist mucous membranes, PERRL NECK: trachea midline, no JVD CV: regular rate and rhythm, no murmurs PULM: clear bilaterally ABD: soft, nontender, nondistended, no organomegaly EXT: warm and well perfused with no edema NEURO: awake, alert, oriented, no focal deficits Objective Labs 09/03/22 04:30 09/03/22 04:30 COUNTS INCLUDE 234 BEDS AT THE [facility] Social History household members: other Smoking Status: Former smoker alcohol intake: never Discharge Plan Discharge Plan Patient Disposition: Home Provider Discharge Comment: You were admitted for nausea, vomiting and diarrhea and found to have norovirus. You had high markers in your blood (white blood cell count and procalcitonin) which suggests you have an infection elsewhere, but we didn't find any evidence of that. The only finding was on your CT scan you had some bowel wall thickening suggestive of colitis or a gut infection. Norovirus shouldn't do this. So I'm placing you on oral antibiotics just to be safe. There is a small possibility that your markers are high for other reasons such as cancer. You should follow-up with a PCP for a referral for a colonoscopy and repeat labs of your blood counts to make sure they aren't still high. I would also get a mammogram and pap smear if you haven't already. Discharge orders & Medications Prescriptions: New ciprofloxacin HCl [Cipro] 500 mg tablet 500 mg PO BID 7 Days Qty: 14 0RF metronidazole 500 mg tablet 500 mg PO TID 7 Days Qty: 21 0RF Continued multivitamin Capsule 1 cap PO DAILY calcium 100 mg Capsule 100 mg PO DAILY cholecalciferol (vitamin D3) 10 mcg (400 unit) Capsule 10 mcg PO DAILY Follow up/Referrals: Po Michelle [Non-Staff] - 09/10/22 10:00 am (appt: 09/10 @ 1000 please check in at 9:[address] Michelle located @ [facility] @ [address] [place] [address] ) Visit Report/Discharge Packet Stand Alone Forms: Patient Portal/API, Stroke Signs & Symptoms Quality VTE Deep Vein Thrombosis/Pulmonary Embolism Present on Admission: No
--- NOTE | 2022-09-03 12:38 | CM.DPC ---
DCP Cont: Discussed patient during team rounds. She is hopeful to go home today, feels more comfortable in her own bed. Hospitalist indicated as long as her WBC improves, should be able to go home. Confirmed that patient resides in [facility], cares for her aging mother, and that her daughter and family live on her property. P: Patient does have discharge orders for home today. Dipti Portillo RN/Auto Fleet Maintenance Manager
== END 2022-09-03 13:30 | disposition home or self-care (01) | DRG 872 ==
LOC: ED 16:43 → AC 16:47
PROVIDERS: Admitting Provider Student in an Organized Health Care Education/Training Program; Emergency Provider Emergency Medicine; Referring Provider Emergency Medicine; Visit Provider Student in an Organized Health Care Education/Training Program
DX: A41.51 Sepsis due to Escherichia coli [E. coli] (principal); A08.11 Acute gastroenteropathy due to Norwalk agent; N39.0 Urinary tract infection, site not specified; E87.20 Acidosis, unspecified; E87.6 Hypokalemia; E11.9 Type 2 diabetes mellitus without complications; Z20.822 Contact with and (suspected) exposure to COVID-19; Z87.891 Personal history of nicotine dependence
CPT/HCPCS: 0241U; 36415; 71260; 74022; 74177; 76857; 80048; 80053; 81003; 81015; 82962; 83036; 83605; 83690; 83735; 84145; 84439; 84443; 85007; 85025; 87040; 87077; 87086; 87150; 87186; 87507; 93005; 93010; 96365; 96375; 99284; 99285; C9113; J0696; J2405; J2543; J3475; Q9967